=== PATIENT | female | born 1990 | race African-American/Black ===

== ENCOUNTER 2020-10-02 21:41 | Emergency (ER) | payer OTHER ==
[~2020-10-02] VITALS: Ht 170.2 cm; Wt 67.1 kg
[2020-10-02 22:09] LABS: URINE BLOOD 1+ (Negative); URINE COLOR YELLOW; URINE GLUCOSE-RANDOM NEGATIVE (Negative); URINE KETONES 2+ (Negative); URINE NITRITE-REFLEX NEGATIVE (Negative); URINE PROTEIN TRACE (Negative); URINE SPECIFIC GRAVITY 1.025 (1.005-1.030)
[2020-10-02 22:16] LABS: ICTOTEST (BILI CONFIRMATORY) Negative (Negative); URINE BILIRUBIN 1+ (Negative); URINE LEUKOCYTES-REFLEX 2+ (Negative)
[2020-10-02 22:20] LABS: SQUAMOUS >10 Many /LPF (0-3); URINE CLARITY SL HAZY
[2020-10-02 22:21] LABS: BACTERIA-REFLEX 1-9 Few /HPF (None Seen); CASTS None Seen /LPF (None Seen); CRYSTALS None Seen /LPF (None Seen); URINE RBC 0-2 Rare /HPF (0-2)
[2020-10-02 22:22] LABS: MUCUS >6 Heavy strn/LPF (None Seen)
[2020-10-02] MEDS ORDERED: FLAGYL500 M1 PO (23:02)
[2020-10-02 23:12] VITALS: BP 141/64
== END 2020-10-02 23:12 | disposition home or self-care (01) ==
LOC: M.ERS 21:41
PROVIDERS: Personal Emergency Response Attendant
DX: N89.8 Other specified noninflammatory disorders of vagina (principal); A59.9 Trichomoniasis, unspecified; N88.8 Other specified noninflammatory disorders of cervix uteri